=== PATIENT | male | born 1960 | race Caucasian/White ===

== ENCOUNTER 2018-04-11 18:22 | Inpatient (IN) | payer OTHER, SELFPAY ==
[2018-04-11] VITALS (7 sets, daily range): BP systolic 110–126; BP diastolic 74–86; PULSE 87–99; RESP 14–18; TEMP 35.9–37.4; O2SAT 90–96; BMI 31.0
--- NOTE | 2018-04-11 | APP_PTH ---
PATIENT: TORRES HUDSON LOC: MS2 U#:[id number] AGE/SX: 58/M ROOM: MS217 RE04/11/[address]: Dr. Ben Post MD : 1960 BED: 1 DIS: 04/13/2018 SPEC #: [id number] RECD: 04/12/18 13:23 STATUS: TERRA REQ #: [id number] JOHN: 04/11/18 00:[address]: Ben Post DEPT: SURGICAL PATHOLOGY RECD BY: Virgilio Braga ENTERED: 04/12/18 13:23 SP TYPE: APPENDIX OTHR DR: No Primary Care Phys Tissues: Appendix, NOS Procedures: Surgery Specimen Level III HEADER OPERATION: Laparoscopic appendectomy PRE-OP DIAGNOSIS: Acute appendicitis TISSUE SUBMITTED: Appendix MICROSCOPIC DIAGNOSIS Appendix: Acute appendicitis and periappendicitis. SJ:ludwin 04/13/18 MICROSCOPIC DESCRIPTION Slides are reviewed. GROSS DESCRIPTION Received is one container labeled with the patient's name and designated appendix. The specimen consists of an appendix measuring 6.5 cm in length and up to 1.3 cm in average diameter. This appears to be disrupted at the tip. No obvious tip is noted in the submitted specimen. The serosa is congested and focally covered with sanchez, purulent exudate. The attached periappendiceal adipose tissue measures up to 3.5 cm in width. Sections do not reveal any fecalith in the lumen. The mucosa is focally congested. Etl Tester sections are submitted in one cassette. / CONCHIS:ludwin 04/12/18 TC:2 CPT: 58918
--- NOTE | 2018-04-11 18:34 | CT_ITS ---
STUDY: CT ABDOMEN AND PELVIS WITH CONTRAST REASON FOR EXAM: Male, 58 years old. Rebound tenderness. RADIATION DOSAGE (If Supplied By Facility): CTDIvol = ( 13.80 ) mGy, DLP = ( 713.76 ) mGycm TECHNIQUE: Transaxial images were obtained from the dome of the diaphragm to the symphysis pubis with oral contrast. 15 ml of Gastrografin contrast was administered. Sagittal and coronal images were reconstructed. Individualized dose optimization techniques were used for this CT. COMPARISON: None. FINDINGS: The visualized lung bases are unremarkable. The visualized portions of the heart are within normal limits. There is decreased attenuation of the liver consistent with steatosis. Normal gallbladder and extrahepatic biliary system. Normal spleen. Normal pancreas. Normal bilateral adrenal glands. Right kidney has a 1 mm nonobstructing mid renal stone. Right kidney is otherwise normal. Left kidney has a 2 mm nonobstructing upper pole stone. Left kidney is otherwise normal. Normal visualized stomach. Normal small intestine. Normal colon. There is a tubular, thick-walled appendix (>7mm), consistent with acute appendicitis. Appendix has a thickened wall and a diameter of 1.8 cm. There is moderate periappendiceal fat stranding. There is no evidence for perforation or abscess. There is diffuse atherosclerotic calcification of the abdominal aorta, without a demonstrated aneurysm. Normal inferior vena cava. Normal retroperitoneum. Normal urinary bladder. There is enlargement of the prostate gland. There is a small left-sided inguinal hernia containing adipose tissue. There are diffuse degenerative changes of the visualized lumbar spine. CT/Abdomen/Pel W ORAL Cont Only IMPRESSION: Findings consistent with acute uncomplicated appendicitis. N.B. : The above information has been verbally conveyed by Khanh Penaloza MD to Rj Ravi MD, on 04/11/2018 20:55:52 (ET). Electronically Signed: Khanh Penaloza MD at 20:56 EDT , Service support ,
[2018-04-11] MEDS: Ondansetron 4 MG/2 ML Vial IV (18:52)
[2018-04-11] MEDS: 0.9% Normal Saline 1,000 ML 1000 ML IV (18:52)
[2018-04-11] MEDS: morphine 8 MG/ML Syringe IV (18:52)
[2018-04-11 18:56] LABS: Absolute Lymphocyte Count 0.98 X10^3/ul (0.83-4.51); Absolute Neutrophil Count 6.7 X10^3/uL (2.0-7.7); Basophil# 0.01 X10^3/uL; Basophil% 0.1 % (0-1); Eosinophil# 0.11 X10^3/uL; Eosinophils% 1.3 % (0-5); Hematocrit 46.6 % (40-54); Hemoglobin 16.5 g/dl (13.0-16.5); Lymphocyte # 0.98 X10^3/ul (4.0); Lymphocyte % 11.7 % (19-41); Mean Corp Hgb Conc 35.4 g/gl (32-36); Mean Corpuscular Hgb 35.3 pg (27.0-32.0); Mean Corpuscular Volume 99.8 fL (80-94); Mean Platelet Vol. 9.6 fl (6.2-12.0); Monocyte# 0.55 X10^3/uL; Monocyte% 6.6 % (0-10); Neutrophil # 6.68 X10^3/uL (2.7-7.7); Neutrophil % 80.1 % (47-70); POSITIVE COUNT NO; POSITIVE DIFFERENTIAL NO; POSITIVE MORPHOLOGY NO; Platelet Count 169 K/mm3 (150-450); RBC Distribution Width CV 13.4 % (11.6-14.6); RBC Distribution Width SD 48.4 fl (35.1-43.9); Red Blood Count 4.67 M/mm3 (4.6-6.2); White Blood Count 8.4 K/mm3 (4.4-11.0)
[2018-04-11 19:10] LABS: Anion Gap 9 (5-15); BUN 9 mg/dL (7-18); BUN/Creat Ratio 8.9 RATIO (10-20); Calcium,Total 9.5 mg/dL (8.5-10.1); Chloride 95 mmol/L (98-107); Creatinine, Serum 1.01 mg/dL (0.70-1.30); EST Glomerular Filtration Rate 80 mL/min (>60); Est Glom Filt Rate - Afr Amer 97 mL/min (>60); Estimated Creatinine Clearance 78.75 ml/min; Glucose 97 mg/dL (74-106); Potassium 3.9 mmol/L (3.5-5.1); Sodium Level 129 mmol/L (136-145)
--- NOTE | 2018-04-11 21:02 | ED.DCSUM_ITS ---
- ER Visit Summary Date of Service: 04/11/18 Chief Complaint: Constipation and abdominal pain History of Present Illness: The patient is a 58 M who completed second course of antibiotic. He reported initially diarrhea. He now states is not had a bowel movement couple days. He denies dysuria, frequency, urgency or hematuria. Denies history of renal ureterolithiasis. He does complain of subjective fever. He reported anorexia today. He also reports nausea. He localizes pain to the right lower quadrant. He admits to pain with walking and movement on the cot causes him discomfort. He was holding the right side of his abdomen. Please see the written note for further detail Physical Examination: Vital signs are noted and unremarkable. Is afebrile. Head is atraumatic normocephalic. Pupils are equal round reactive. Extraocular muscles are intact. TMs are pearly white with landmarks noted. Nares patent with no drainage. Posterior pharynx without erythema or exudate. Uvula is midline. There is no dysphonia or dysphasia. Trachea is midline. There is no stridor with auscultation of the neck. Heart is regular without murmur, gallop or rub. S1 and S2 are normal. Lungs are clear to auscultation with good movement of air bilaterally. Abdomen is distended tympanitic with percussion tenderness in the proximity McBurney's point. Positive rebound tenderness and Rovsing sign. There is no hepatosplenomegaly. The remainder of exam is unremarkable please read written note Test Results: White count is normal. Electro panels marked for sodium of 129. CT of the abdomen with p.o. and IV contrast reveals acute appendicitis Emergency Department Course and Treatment: Patient's history and findings are concerning for appendicitis. Since he is 58 years of age had symptoms for a couple of days this may represent right-sided diverticulitis, tumor, abscess or appendicitis and reason for CT. Treatment Plan: IV was established. He received IV fluids. Because he has yokasta tonitis with evidence of acute appendicitis will treat with 4.5 g of Zosyn IV piggyback. Dr. Ben Post who is on-call for surgery has been notified of patient. Why is it not Disposition: To OR Impression: Acute appendicitis This note was generated with [employer] dictation software. It may contain incorrect words, spelling, and punctuation that were not noted in review of the chart prior to signing ED Disposition - Plan for ED Patient: Chief Complaint: Abd Pain Referrals: Care Physician,No Primary [Primary Care Provider] -
--- NOTE | 2018-04-11 21:42 | PCM.HP.STD ---
History of Present Illness Date of Admission: 04/11/18 The patient is a 58 year old M 2 day history of abdominal pain. Pain is now localized to the right lower quadrant. He denies fever or chills, but has anorexia. He has a normal WBC count but a left shift. CT scan demonstrated acute appendicitis Past Medical History Allergies No Known Allergies Allergy (Verified 04/11/18 18:24) Home Medications: Ambulatory Orders Medication Instructions Recorded NK 04/11/18 Surgical History: no surgical history Smoking Status: Current every day smoker Alcohol: Occasional Review of Systems Constitutional: Reports: Anorexia. Denies: Chills, Fever, Weight Change HEENT: Denies: Head Aches, Sinus Congestion, Sinus Drainage Cardiovascular: Denies: Chest Pain, Palpitations Respiratory: Denies: Cough, Shortness of breath at rest, Sputum production Gastrointestinal: Reports: Abdominal Pain. Denies: Nausea, Vomiting Genitourinary: Denies: Dysuria Musculoskeletal: Denies: Joint Pain, Joint Tenderness Skin: Denies: Rash, Wounds Neurological: Denies: Numbness, Tingling, Focal weakness Psychiatric: Denies: Anxiety, Depression, Homicidal Ideations, Suicidal Ideations Hematologic/ Lymphatic: Denies: Easy Bruising, Easy Bleeding VTE Information - Inpt Only VTE Present on Admission: No VTE Mechan Device Prophylaxis: SCD's - Physical Exam General: Alert HEENT: Atraumatic, PERRLA, EOMI, Normocephalic Neck: Supple, No JVD, Negative Carotid Bruits Lungs: Clear to auscultation, Normal air movement Cardiovascular: Regular rate, No murmurs Abdomen: Bowel Sounds Present, Soft, Tender - RLQ Extremities: No edema, Capillary Refill Less than 3 Seconds Skin: No rashes, No breakdown Musculoskeletal: No Tenderness to Palpation of Joints or Extremities Neurological: Cranial nerves II-XII grossly intact Psych/Mental Status: Normal Affect, Appropriate Vital Signs Temp Pulse Resp BP Pulse Ox 99.3 F H 97 16 126/86 H 94 04/11/18 21:16 04/11/18 21:16 04/11/18 21:16 04/11/18 21:16 04/11/18 21:16 Oxygen Delivery Method Room Air Weight: 95.254 kg Body Mass Index (BMI) 31.0 Laboratory Tests Past 24 Hrs 04/11/18 04/11/18 18:44 18:44 WBC 8.4 RBC 4.67 Hgb 16.5 Hct 46.6 MCV 99.8 H MCH 35.3 H MCHC 35.4 RDW 13.4 RDW Differential 48.4 H Plt Count 169 MPV 9.6 Immature Gran % (Auto) 0.200 Neut % (Auto) 80.1 H Lymph % (Auto) 11.7 L [place] % (Auto) 6.6 Eos % (Auto) 1.3 Baso % (Auto) 0.1 Absolute Neuts (auto) 6.7 Absolute Lymphs (auto) 0.98 Total Counted Not Reportable Sodium 129 L Potassium 3.9 Chloride 95 L Carbon Dioxide 25.0 Anion Gap 9 BUN 9 Creatinine 1.01 Estim Creat Clear Calc 78.75 Est GFR (MDRD) Af Amer 97 Est GFR (MDRD) Non-Af 80 BUN/Creatinine Ratio 8.9 L Glucose 97 Calcium 9.5 Assessment/Plan Appendicitis. I plan to perform a laparoscopic appendectomy. The patient understands the risks, benefits, possible complications and alternatives and consents to the planned procedure. H was given Zosyn in the ER
[2018-04-11] MEDS: Bupivacaine 0.5% PF 10 ML VIAL (22:56)
--- NOTE | 2018-04-11 23:12 | PCM.OPRPT ---
Report of Operation Date of Procedure: 04/11/18 Pre-Operative Diagnosis: acute appendicitis Post-Operative Diagnosis: perforated appendicitis Surgery/Procedure Performed:: laparoscopic appendectomy Description of Surgical Findings:: perforated with significant abdominal irritation Type of Anesthesia:: General Anesthesiologist: Johanna Crain - ASA2E Specimen's removed: appendix Estimated Blood Loss (mL): 10 Fluids Replaced: 800 Description of Procedure: The patient was brought to the operating suite. Sign in was performed verifying patient, site, procedure, position, and DVT prophylaxis with SCDs. Patient received 4.5 g Zosyn for presumed appendicitis. Following induction of general anesthetic. The patient?s abdomen was prepped and draped in the usual fashion. Timeout was performed verifying patient, site, position. Local anesthetic was injected below the umbilicus. Incision made and dissection carried down to the umbilical root fascia. 2 stay sutures were placed. Incision made in the fascia, the peritoneum entered under direct visualization. A 10 mm Doss trocar was inserted and secured with the stay sutures. Pneumoperitoneum to 15 mmHg was insufflated. 2 5mm ports were placed in the standard position. Visual inspection revealed perforated appendicitis with purulent fluid and abdominal imflammation. A window was made between the base the mesoappendix and the base of the appendix transected with the intestinal load Endo ANTHONY stapler at the base of the cecum. The mesoappendix was transected with a harmonic scalpel. The appendix was placed in an Endobag and removed through the umbilical port site. An 0 PDS [id number] suture was placed around the umbilical port site defect. Pneumoperitoneum was reestablished. The appendiceal area was checked for hemostasis. 5mm ports were removed under direct visualization with no signs of bleeding. Pneumoperitoneum was released. The Doss trocar was removed. The umbilical fascial suture was secured area did skin was closed with interrupted 4-0 Monocryl subcuticular sutures. Steri-Strips and bandages were applied. The patient was brought to recovery room in stable condition. - Admit VTE Documentation VTE Present on Admission: No VTE Mechan Device Prophylaxis: SCD's VTE Pharm Prophylaxis ordered?: No
[2018-04-12 00:10] VITALS: BP 113/63; PULSE 89; RESP 18; TEMP 36.7; O2SAT 95
[2018-04-12 00:26] VITALS: BMI 31.2
[2018-04-12 00:59] VITALS: BMI 31.2
[2018-04-12] MEDS: Lactated Ringers 1,000 ML 100 ML IV ×3 (01:28→22:28)
[2018-04-12 02:07] VITALS: BP 104/67; PULSE 80; RESP 18; TEMP 36.4; O2SAT 94
[2018-04-12 04:00] VITALS: BP 103/75; PULSE 68; RESP 16; TEMP 36.3; O2SAT 94
[2018-04-12] MEDS: Piperacil/Tazobactam 3.375 GM/50 ML ML IV ×3 (06:33→22:30)
[2018-04-12] MEDS: 0.9% NaCl IVPB Med Flush (250 mL) 15 ML IV ×2 (06:33→22:31)
[2018-04-12 07:09] LABS: Absolute Lymphocyte Count 0.32 X10^3/ul (0.83-4.51); Basophil# 0.01 X10^3/uL; Basophil% 0.1 % (0-1); Hematocrit 41.2 % (40-54); Hemoglobin 14.5 g/dl (13.0-16.5); Lymphocyte # 0.32 X10^3/ul (4.0); Lymphocyte % 3.3 % (19-41); Mean Corp Hgb Conc 35.2 g/gl (32-36); Mean Corpuscular Hgb 35.5 pg (27.0-32.0); Mean Platelet Vol. 9.4 fl (6.2-12.0); Monocyte# 0.27 X10^3/uL; Monocyte% 2.8 % (0-10); Neutrophil % 93.6 % (47-70); Platelet Count 135 K/mm3 (150-450); RBC Distribution Width SD 47.6 fl (35.1-43.9); Red Blood Count 4.08 M/mm3 (4.6-6.2); White Blood Count 9.6 K/mm3 (4.4-11.0)
[2018-04-12 07:14] LABS: Differential Indicated SCAN CRITERIA MET; POSITIVE COUNT NO; POSITIVE DIFFERENTIAL YES; POSITIVE MORPHOLOGY NO
[2018-04-12 07:35] LABS: AST(SGOT) 29 U/L (15-37); Alanine Aminotransfer ALT/SGPT 31 U/L (16-61); Albumin, Serum 3.1 g/dL (3.2-5.0); Alkaline Phosphatase 72 U/L (45-117); Anion Gap 7 (5-15); BUN 10 mg/dL (7-18); Calcium,Total 8.7 mg/dL (8.5-10.1); Chloride 97 mmol/L (98-107); Creatinine, Serum 1.11 mg/dL (0.70-1.30); EST Glomerular Filtration Rate 72 mL/min (>60); Est Glom Filt Rate - Afr Amer 87 mL/min (>60); Estimated Creatinine Clearance 71.66 ml/min; Glucose 133 mg/dL (74-106); Potassium 4.6 mmol/L (3.5-5.1); Protein, Total 6.1 g/dL (6.4-8.2); Sodium Level 129 mmol/L (136-145)
[2018-04-12 08:00] VITALS: BP 123/78; PULSE 78; RESP 18; TEMP 36.8; O2SAT 94
--- NOTE | 2018-04-12 13:38 | CASEMGMT ---
RN CM Assessment Intro role of CM to patient in room. He is awake, alert and able to participate in RN CM Assessment. Pt states he is independent, no ambulatory DME use, drives. No discharge needs identified @ this time. PCP: Out of town physician; pt will f/u with surgeon on dc. [facility]acy: [facility] Prescription Coverage: yes DME: CPAP only DC PLAN: Home on discharge.
[2018-04-12 16:03] VITALS: BP 126/67; PULSE 90; RESP 18; TEMP 36.3; O2SAT 93
--- NOTE | 2018-04-12 17:44 | PN.SURG_ITS ---
Subjective: abdomen distended, no flatus - Physical Exam General: Alert, Oriented x3, Cooperative Lungs: Clear to auscultation, Normal air movement Cardiovascular: Regular rate, No murmurs Abdomen: Soft, Bowel Sounds Not Present, Tender - at incisions and distended Vital Signs Temp Pulse Resp BP Pulse Ox 97.3 F L 90 18 126/67 H 93 04/12/18 16:03 04/12/18 16:03 04/12/18 16:03 04/12/18 16:03 04/12/18 16:03 Oxygen Flow Rate (L/min) 1 Oxygen Delivery Method Room Air Weight: 95.935 kg Body Mass Index (BMI) 31.2 Intake and Output for Last 24 Hours 04/10/18 04/11/18 04/12/18 23:59 23:59 23:59 Intake Total 1400 / 1400 2130 / 2130 Output Total 800 / 800 Balance 1400 / 1400 1330 / 1330 Laboratory Tests Past 24 Hrs 04/11/18 04/11/18 04/12/18 18:44 18:44 06:20 WBC 8.4 9.6 RBC 4.67 4.08 L Hgb 16.5 14.5 Hct 46.6 41.2 MCV 99.8 H 101.0 H MCH 35.3 H 35.5 H MCHC 35.4 35.2 RDW 13.4 13.0 RDW Differential 48.4 H 47.6 H Plt Count 169 135 L MPV 9.6 9.4 Immature Gran % (Auto) 0.200 0.200 Neut % (Auto) 80.1 H 93.6 H Lymph % (Auto) 11.7 L 3.3 L [place] % (Auto) 6.6 2.8 Eos % (Auto) 1.3 0.0 Baso % (Auto) 0.1 0.1 Absolute Neuts (auto) 6.7 9.0 H Absolute Lymphs (auto) 0.98 0.32 L Total Counted Not Reportable Not Reportable Differential Comment COMMENT Sodium 129 L Potassium 3.9 Chloride 95 L Carbon Dioxide 25.0 Anion Gap 9 BUN 9 Creatinine 1.01 Estim Creat Clear Calc 78.75 Est GFR (MDRD) Af Amer 97 Est GFR (MDRD) Non-Af 80 BUN/Creatinine Ratio 8.9 L Glucose 97 Calcium 9.5 Total Bilirubin AST ALT Alkaline Phosphatase Total Protein Albumin Globulin Albumin/Globulin Ratio 04/12/18 06:20 WBC RBC Hgb Hct MCV MCH MCHC RDW RDW Differential Plt Count MPV Immature Gran % (Auto) Neut % (Auto) Lymph % (Auto) [place] % (Auto) Eos % (Auto) Baso % (Auto) Absolute Neuts (auto) Absolute Lymphs (auto) Total Counted Differential Comment Sodium 129 L Potassium 4.6 Chloride 97 L Carbon Dioxide 25.0 Anion Gap 7 BUN 10 Creatinine 1.11 Estim Creat Clear Calc 71.66 Est GFR (MDRD) Af Amer 87 Est GFR (MDRD) Non-Af 72 BUN/Creatinine Ratio 9.0 L Glucose 133 H Calcium 8.7 Total Bilirubin 1.10 H AST 29 ALT 31 Alkaline Phosphatase 72 Total Protein 6.1 L Albumin 3.1 L Globulin 3.0 Albumin/Globulin Ratio 1.0 Medical Necessity - Tobacco Use Smoking Status: Current every day smoker Tobacco Use: Cigarettes Assessment/Plan Appendicitis. POD # 1 s/p laparoscopic appendectomy for perforated appendicitis. continue zosyn, anticipate ileus, SCD and ambuation and IS
[2018-04-12] MEDS: Morphine 4 MG/ML Syringe IV (18:01)
[2018-04-12] MEDS: 0.9% NaCl Peripheral Flush Adult/Peds IV (18:02)
[2018-04-12 22:35] VITALS: BP 114/78; PULSE 56; RESP 18; TEMP 36.4; O2SAT 95
[2018-04-12] MEDS: Ibuprofen 400 MG Tablet PO (22:41)
[2018-04-13 03:17] VITALS: BP 109/70; PULSE 60; RESP 16; TEMP 36.4; O2SAT 95
[2018-04-13] MEDS: Piperacil/Tazobactam 3.375 GM/50 ML ML IV (05:21)
--- NOTE | 2018-04-13 08:04 | DCINST_ITS ---
Discharge Diet: Light diet - advance as tolerated, - - liquids until bowel movement, then light diet and advance as tolerated Discharge Activity: May Not Drive - for 3-5 days or while taking narcotic pain meds. May shower in (days): 1 Suture Line Care: Avoid Pulling/Pushing, Avoid Pinching/Bending Additional Dressing/Incision Instructions:: Keep dressing clean and dry. Change or remove dressing in 2 days. Leave steri strips for 1 week. May protect with a gauze bandaid. Medications to take at Discharge Amoxicillin/Potassium Clav [Augmentin 875-125 Tablet] 1 ea PO BID #20 tab 04/13/18 Ibuprofen [Motrin] 400 mg PO Q4H PRN PRN tablet 04/13/18 Oxycodone [Oxyir] 5 mg PO Q4H PRN PRN 7 Days #10 tab 04/13/18 Allergies/Adverse Reactions: Allergies No Known Allergies Allergy (Verified 04/11/18 18:24) The following prescriptions were given: Oxycodone [Oxyir] 5 mg PO Q4H PRN PRN 7 Days #10 tab PRN Reason: Severe Pain (-03/29) Amoxicillin/Potassium Clav [Augmentin 875-125 Tablet] 1 ea PO BID #20 tab Primary Care Physician: Care Physician,No Primary [NON-STAFF] - Test Results: Test results from this visit will be discussed in further detail at your follow- up appointment, if applicable. Please Follow Up With: Ben Post MD - [phone] When: Call to make a follow up appointment in 1 week.
[2018-04-13 09:33] VITALS: BP 116/82; PULSE 61; RESP 16; TEMP 36.4; O2SAT 97
--- NOTE | 2018-04-13 21:12 | PCM.DC.SUM ---
Discharge Date and Diagnosis Date of Admission: 04/11/18 Date of Discharge: 04/13/18 - Primary Discharge Diagnosis perforated appendicitis Hospital Course and Treatment Operations: appendectomy Summary of Care Provided: The patient is a 58 year old M with a 2 day history of abdominal pain. He was taken the operating suite and underwent laparoscopic appendectomy for what demonstrated to be perforated appendicitis with purulent fluid in the right lower quadrant significant lower abdominal erythematous inflammation grade the patient had return of bowel activity with flatus on postoperative day 2 and was able to be discharged home on clear liquids, pain medications, and Augmentin. - Physical Exam General: Alert, Oriented x3, Cooperative Lungs: Clear to auscultation, Normal air movement Cardiovascular: Regular rate, Regular Rhythm Abdomen: Bowel Sounds Present, Soft, Non Tender Vital Signs Temp Pulse Resp BP Pulse Ox 97.6 F L 61 16 116/82 H 97 04/13/18 09:33 04/13/18 09:33 04/13/18 09:33 04/13/18 09:33 04/13/18 09:33 Oxygen Flow Rate (L/min) 1 Oxygen Delivery Method Room Air Weight: 95.935 kg Body Mass Index (BMI) 31.2 Intake and Output for Last 24 Hours 04/11/18 04/12/18 04/13/18 23:59 23:59 23:59 Intake Total 1400 / 1400 2130 / 2130 1897 / 1897 Output Total 800 / 800 Balance 1400 / 1400 1330 / 1330 1897 / 1897 Discharge Diet: Light diet - advance as tolerated, - - liquids until bowel movement, then light diet and advance as tolerated Discharge Activity: May Not Drive - for 3-5 days or while taking narcotic pain meds. May shower in (days): 1 Suture Line Care: Avoid Pulling/Pushing, Avoid Pinching/Bending Additional Dressing/Incision Instructions:: Keep dressing clean and dry. Change or remove dressing in 2 days. Leave steri strips for 1 week. May protect with a gauze bandaid. Home Medications: Medications to take at Discharge Amoxicillin/Potassium Clav [Augmentin 875-125 Tablet] 1 ea PO BID #20 tab 04/13/18 Ibuprofen [Motrin] 400 mg PO Q4H PRN PRN tablet 04/13/18 Oxycodone [Oxyir] 5 mg PO Q4H PRN PRN 7 Days #10 tab 04/13/18 Following Prescrptions Were Given to Patient: Oxycodone [Oxyir] 5 mg PO Q4H PRN PRN 7 Days #10 tab PRN Reason: Severe Pain (-03/29) Amoxicillin/Potassium Clav [Augmentin 875-125 Tablet] 1 ea PO BID #20 tab Primary Care Physician: Care Physician,No Primary [NON-STAFF] - Please Follow Up With: Ben Post MD - [phone] When: Call to make a follow up appointment in 1 week. Medical Necessity - Tobacco Use Smoking Status: Current every day smoker Tobacco Use: Cigarettes Meaningful Use Info Meaningful Use Diagnoses (Choose all that apply): None applicable
== END 2018-04-13 11:02 | disposition home or self-care (01) | DRG 340 ==
LOC: ED 19:07 → SDC 21:11 → MS2 04-12 07:09 → SDC 04-12 07:09
PROVIDERS: Admitting Provider Surgery; Emergency Provider Emergency Medicine; Referring Provider Surgery; Visit Provider Surgery
PROC: 0DTJ4ZZ Resection of Appendix, Percutaneous Endoscopic Approach (ICD-10-PCS; CPT 44970; principal; 2018-04-11 22:00)
DX: K35.32 Acute appendicitis with perforation, localized peritonitis, and gangrene, without abscess (principal)
CPT/HCPCS: 36415; 74176; 80048; 80053; 85025; 88304; 97802; 99282; J7030; J7050; J7120; A4216; J2405